=== PATIENT | female | born 1945 | race Hispanic/Latino ===

== ENCOUNTER → 2019-07-27 | Outpatient (CLI) | payer OTHER ==
[2019-07-27 11:49] LABS: CREATININE 0.6 mg/dL (0.5-1.5)
== END | disposition home or self-care (01) ==
LOC: LAB 10:46
PROVIDERS: ATTEND Internal Medicine Gastroenterology
DX: C18.9 Malignant neoplasm of colon, unspecified (principal)
CPT/HCPCS: 36415; 82378; 82565; 84520

== ENCOUNTER → 2019-08-03 | Outpatient (CLI) | payer OTHER ==
[~2019-08-03] MED LIST: AMLO10TA7 PO; ATOR40TA71 PO; DAPA1TAB3 PO; FENO150C4 PO; HUMLIS7525 SQ; IOHEXOL 350 MG/ML 100ML INFUS..BTL IV ONE; LISI-617 PO; METO50TA18 PO; PROPOFOL 10 MG/ML 20ML VIAL IV ONE
== END | disposition home or self-care (01) ==
LOC: RAH 07:22
PROVIDERS: ATTEND Internal Medicine Gastroenterology
DX: C18.9 Malignant neoplasm of colon, unspecified (principal); C78.7 Secondary malignant neoplasm of liver and intrahepatic bile duct
CPT/HCPCS: 71270; 74178; Q9967; J2704

== ENCOUNTER 2019-08-04 05:46 | Day surgery (SDC) | payer OTHER ==
[~2019-08-04] VITALS: Ht 160 cm; Wt 81.6 kg
[~2019-08-04 05:46] MED LIST changes: -IOHEXOL 350 MG/ML 100ML INFUS..BTL IV ONE; -PROPOFOL 10 MG/ML 20ML VIAL IV ONE
[2019-08-04 06:40] VITALS: BP 136/61
[2019-08-04] MEDS ORDERED: PROPOFOL 10 MG/ML 20ML VIAL IV ONE (06:58)
[2019-08-04] MEDS ORDERED: SODIUM CHLORIDE 0.9% 1000ML 1,000 ML IV ONE (06:58)
[2019-08-04] MEDS ORDERED: LIDOCAINE HCL 1% 20 ML VIAL ONE (06:58)
[2019-08-04 07:54] VITALS: BP 94/45
[2019-08-04 08:00] VITALS: BP 101/55
[2019-08-04 08:05] VITALS: BP 111/57
[2019-08-04 08:10] VITALS: BP 120/71
[2019-08-04 08:18] VITALS: BP 127/75
== END 2019-08-04 08:20 | disposition home or self-care (01) ==
LOC: ENDO 05:46 → DAH 05:46 → ENDO 08:20
PROVIDERS: ATTEND Internal Medicine Gastroenterology
DX: C21.8 Malignant neoplasm of overlapping sites of rectum, anus and anal canal (principal); I10 Essential (primary) hypertension; E11.9 Type 2 diabetes mellitus without complications; E78.2 Mixed hyperlipidemia; Z79.4 Long term (current) use of insulin; Z79.899 Other long term (current) drug therapy
CPT/HCPCS: 45391; 76872; 82948 ×2; A4215; A4221; A4222; A4223; A4606; A4615; A4663; J2704; J7030; 45393